=== PATIENT | female | born 1980 | race Caucasian/White ===

== ENCOUNTER → 2016-11-13 | Outpatient (REF) | payer OTHER | LOC: M SFHCWAGY 14:05 | PROVIDERS: ATTEND Nurse Practitioner Women's Health | DX: Z12.4 Encounter for screening for malignant neoplasm of cervix (principal) ==

== ENCOUNTER → 2017-07-14 | Outpatient (CLI) | payer OTHER ==
[2017-07-14 17:45] LABS: COMPLEMENT C3 68.5 MG/DL (90-180); COMPLEMENT C4 13.1 MG/DL (10-40); IMMUNOGLOBULIN E 35.4 IU/ML (<100); IMMUNOGLOBULIN M 92.7 MG/DL (40-230)
[2017-07-19 00:06] LABS: ALPHA 1 ANTITRYPSIN 131 mg/dL (90-200); D001-IgE D pteronyssinus <0.10 kU/L (Class 0); E001-IgE Cat Epith/Dander < 0.10 kU/L (Class 0); E005-IgE Dog Dander < 0.10 kU/L (Class 0); F002-IgE Milk < 0.10 kU/L (Class 0); F004-IgE Wheat < 0.10 kU/L (Class 0); F013-IgE Peanut < 0.10 kU/L (Class 0); F014-IgE Soybean < 0.10 kU/L (Class 0); F026-IgE Pork < 0.10 kU/L (Class 0); F027-IgE Beef < 0.10 kU/L (Class 0); F245-IgE Egg, Whole < 0.10 kU/L (Class 0); FX02-IgE Food Mix (Sea Foods) Negative (.); G002-IgE Bermuda Grass < 0.10 kU/L (Class 0); G008-IgE Kentucky Bluegrass < 0.10 kU/L (Class 0); M001-IgE Penicillium chrysogen < 0.10 kU/L (Class 0); M002 IgE Cladosporium herbaru < 0.10 kU/L (Class 0); M003 IgE Aspergillus fumigatu < 0.10 kU/L (Class 0); M006-IgE Alternaria alternata < 0.10 kU/L (Class 0); T001-IgE Maple/Box Elder < 0.10 kU/L (Class 0); T003-IgE Common Silver Birch < 0.10 kU/L (Class 0); T007-IgE Oak, White < 0.10 kU/L (Class 0); T008-IgE Elm, American < 0.10 kU/L (Class 0); T015-IgE Ash, White < 0.10 kU/L (Class 0); T041-IgE Hickory, White < 0.10 kU/L (Class 0); W001-IgE Ragweed, Short < 0.10 kU/L (Class 0); W009-IgE Plantain, English < 0.10 kU/L (Class 0); W014-IgE Pigweed, Rough < 0.10 kU/L (Class 0); W018-IgE Sheep Sorrel < 0.10 kU/L (Class 0)
== END ==
LOC: M WUC 14:56
PROVIDERS: ATTEND Allergy & Immunology
DX: J30.1 Allergic rhinitis due to pollen (principal); J30.81 Allergic rhinitis due to animal (cat) (dog) hair and dander

== ENCOUNTER → 2017-11-23 | Outpatient (REF) | payer OTHER | LOC: M SFHCWAGY 13:36 | DX: Z12.4 Encounter for screening for malignant neoplasm of cervix (principal) ==

== ENCOUNTER → 2018-07-22 | Outpatient (CLI) | payer OTHER | LOC: M RAD 14:52 | DX: N63.10 Unspecified lump in the right breast, unspecified quadrant (principal) ==

== ENCOUNTER → 2018-10-11 | Outpatient (CLI) | payer OTHER ==
[~2018-10-11] MED LIST: PROHANCE 279.3MG/ML 5ML VIAL (A9576) As Ordered ONE
--- NOTE | 2018-10-12 09:00 | REP ---
Bilateral breast MRI study without and with IV gadolinium: History: Right breast lump near the axilla. Comparison mammography and ultrasound July 26, 2018. Technique: 3 [place] MRI imaging was performed with a dedicated breast coil. Axial, coronal, and sagittal T1 and T2-weighted scans were obtained with and without fat saturation in the usual fashion. The study includes dynamically acquired post gadolinium enhanced imaging subtraction imaging. Maximal intensity projection and multiplanar re-formation imaging is included as well. The study was interpreted with the aid of [employer], an FDA approved computer-aided detection (CAD) software program, on a dedicated breast MRI work station. The gadolinium enhancement dose is 10 mL of intravenous ProHance. Findings: Heterogeneous fibroglandular elements are seen bilaterally in the breast parenchyma corresponding with the dense breast parenchyma seen mammographically. There is some slightly asymmetric right axillary tail breast parenchyma although this appears normal. There is no evidence of axillary adenopathy, mass, or significant breast cystic change. There is minimal background parenchymal enhancement. No suspicious morphologic abnormality is seen on high-resolution pre and postcontrast T1 and T2-weighted scans in either breast. Dynamically acquired sequential post gadolinium enhanced images show no suspicious area of enhancement and washout in either breast to suggest malignancy. Specifically, there is no abnormal focus in the axillary soft tissue on the right. Subtraction images are unremarkable. Impression: BI-RADS category 2 benign findings. Clinical followup is advised. Electronically Signed by Mandeep Valdez MD 10/12/2018 11:45 A
== END ==
LOC: M RAD 14:39
PROVIDERS: ATTEND Surgery
DX: N63.10 Unspecified lump in the right breast, unspecified quadrant (principal); N60.31 Fibrosclerosis of right breast; N60.32 Fibrosclerosis of left breast
CPT/HCPCS: A9576; C8908

== ENCOUNTER → 2019-04-03 | Outpatient (REF) | payer OTHER ==
[2019-04-03 12:13] LABS: BASO # 0.1 10^3/uL (0.0-0.2); BASO % 0.7 % (0.0-1.0); EOS # 0.2 10^3/uL (0.0-0.50); EOS % 3.6 % (0.0-3.0); HEMOGLOBIN 13.9 g/dl (12.0-15.5); LYMPH # 1.3 10^3/uL (1.5-4.5); LYMPH % 19.3 % (24.0-44.0); MEAN CORPUSCULAR HEMOGLOBIN 30.5 pg (27.0-33.0); MEAN CORPUSCULAR HGB CONC 33.9 g/dl (32.0-36.5); MEAN CORPUSCULAR VOLUME 90.1 fl (80.0-96.0); MONO # 0.5 10^3/uL (0.0-0.8); MONO % 7.3 % (0.0-5.0); NEUTROPHILS # 4.6 10^3/uL (1.8-7.7); NEUTROPHILS % 68.8 % (36.0-66.0); PLATELET COUNT, AUTOMATED 225 10^3/uL (150-450); RED BLOOD COUNT 4.55 10^6/uL (4.00-5.40); WHITE BLOOD COUNT 6.7 10^3/uL (4.0-10.0)
[2019-04-03 12:38] LABS: ERYTHROCYTE SEDIMENTATION RATE 2 mm/hr (0-20)
[2019-04-03 12:44] LABS: ALBUMIN 4.4 GM/DL (3.2-5.2); ALT/SGPT 17 U/L (12-78); BILIRUBIN,TOTAL 0.8 MG/DL (0.2-1.0); BLOOD UREA NITROGEN 13 MG/DL (7-18); CALCIUM LEVEL 8.9 MG/DL (8.5-10.1); CARBON DIOXIDE LEVEL 30 MEQ/L (21-32); CHLORIDE LEVEL 107 MEQ/L (98-107); COMPLEMENT C3 80 MG/DL (90-180); COMPLEMENT C4 16 MG/DL (10-40); CREATININE FOR GFR 0.74 MG/DL (0.55-1.30); GLOMERULAR FILTRATION RATE > 60.0 (>60); GLUCOSE, FASTING 65 MG/DL (70-100); POTASSIUM SERUM 4.5 MEQ/L (3.5-5.1); SODIUM LEVEL 140 MEQ/L (136-145); TOTAL PROTEIN 7.9 GM/DL (6.4-8.2)
== END ==
LOC: M LABDRAW1 10:59
PROVIDERS: ATTEND Nurse Practitioner Family
DX: D84.1 Defects in the complement system (principal)

== ENCOUNTER → 2019-08-04 | Outpatient (REF) | payer OTHER ==
[2019-08-04 16:04] LABS: IMMUNOGLOBULIN A 95.1 MG/DL (70-400); IMMUNOGLOBULIN M 78.4 MG/DL (40-230)
== END ==
LOC: M LABDRAW1 15:22
PROVIDERS: ATTEND Nurse Practitioner Family
DX: J30.1 Allergic rhinitis due to pollen (principal); J30.81 Allergic rhinitis due to animal (cat) (dog) hair and dander; J30.89 Other allergic rhinitis

== ENCOUNTER → 2019-11-28 | Outpatient (REF) | payer OTHER | LOC: M SFHCWAGY 17:25 | PROVIDERS: ATTEND Nurse Practitioner Family | DX: Z12.4 Encounter for screening for malignant neoplasm of cervix (principal) ==

== ENCOUNTER → 2020-12-17 | Outpatient (CLI) | payer OTHER ==
--- NOTE | 2020-12-17 10:02 | REPMRS ---
Patient History The patient states she had a clinical breast exam in November 2020. Taking hormonal contraceptives for 4 years. Digital Woman Screen Mammo: December 17, 2020 - Exam #: [id number] Bilateral CC and MLO view(s) were taken. Technologist: Saritha Allen Technologist Prior study comparison: July 26, 2018, right breast diagnostic unilateral mammo, performed at [facility]. FINDINGS: The breast tissue is extremely dense which could obscure a lesion on mammography. The Volpara volumetric breast density category is: D. There is an extremely dense symmetrical pattern of residual fibroglandular tissue. There has been no change in the appearance of the mammogram from the previous studies. There is no interval development of dominant mass, archetectural distortion, or grouped microcalcifications suggestive of malignancy. 3-D tomosynthesis shows no additional findings. Assessment: BI-RADS/ACR category 1 mammogram. Negative Mammogram. Recommendation Routine screening mammogram of both breasts in 1 year (for women over age 40). This patient's [facility] Lifetime Breast Cancer RIsk is estimated at 12.7 %. This mammogram was interpreted with the aid of an FDA-approved computer-aided dectection system. Electronically Signed By: Clyde Valdez MD 12/17/20 [id number]
== END ==
LOC: M WHC 08:01
PROVIDERS: ATTEND Nurse Practitioner Family
DX: Z12.31 Encounter for screening mammogram for malignant neoplasm of breast (principal)

== ENCOUNTER → 2021-12-19 | Outpatient (CLI) | payer OTHER | LOC: M WHC 15:07 | PROVIDERS: ATTEND Advanced Practice Midwife | DX: N64.4 Mastodynia (principal); R92.2 Inconclusive mammogram ==

== ENCOUNTER → 2022-12-16 | Outpatient (REF) | payer OTHER | LOC: M PLALAB 09:11 | PROVIDERS: ATTEND Advanced Practice Midwife | DX: Z12.4 Encounter for screening for malignant neoplasm of cervix (principal) | CPT/HCPCS: 87624; G0123 ==

== ENCOUNTER → 2022-12-16 | Outpatient (CLI) | payer OTHER | LOC: M WHC 08:23 | PROVIDERS: ATTEND Advanced Practice Midwife | DX: Z12.31 Encounter for screening mammogram for malignant neoplasm of breast (principal) ==

== ENCOUNTER → 2023-12-23 | Outpatient (CLI) | payer OTHER | LOC: M WHC 09:23 | PROVIDERS: ATTEND Advanced Practice Midwife | DX: Z12.31 Encounter for screening mammogram for malignant neoplasm of breast (principal) ==

== ENCOUNTER → 2024-01-26 | Outpatient (CLI) | payer OTHER | LOC: M WHC 08:08 | PROVIDERS: ATTEND Advanced Practice Midwife | DX: N63.11 Unspecified lump in the right breast, upper outer quadrant (principal) ==

== ENCOUNTER → 2024-12-29 | Outpatient (CLI) | payer OTHER | LOC: M WHC 08:27 | PROVIDERS: ATTEND Advanced Practice Midwife | DX: Z53.9 Procedure and treatment not carried out, unspecified reason (principal) ==

== ENCOUNTER → 2025-09-03 | Outpatient (CLI) | payer OTHER | LOC: M WHC 08:15 | PROVIDERS: ATTEND Registered Nurse | DX: R93.2 Abnormal findings on diagnostic imaging of liver and biliary tract (principal) ==